=== PATIENT | male | born 1950 | race Caucasian/White ===

== ENCOUNTER → 2016-10-28 | Outpatient (CLI) | payer MEDICARE, SELFPAY ==
[~2016-10-28] MED LIST: CRESTOR40 MG PO
== END ==
LOC: HEART 5 07:51
DX: I25.119 Atherosclerotic heart disease of native coronary artery with unspecified angina pectoris (principal); I51.7 Cardiomegaly; I08.1 Rheumatic disorders of both mitral and tricuspid valves; I34.0 Nonrheumatic mitral (valve) insufficiency
CPT/HCPCS: 78452; 93306; A9502; J2785

== ENCOUNTER → 2020-08-08 | Outpatient (CLI) | payer MEDICARE, SELFPAY ==
[~2020-08-08] MED LIST changes: +ACTOS45 MG PO; +ASPIRIN EC81 MG PO; +EFFIENT10 MG PO; +HYDROCODON-ACE1 EAC4 PO; +HYDROCODONE-AC1 EACH PO; +IBUPROFEN OTC PO; +LEVOFLOXACIN500 MG PO; +LORATADINE10 MG PO; +METFORMIN HCL500 MG PO; +NITROGLYCERIN0.4 MG SL; +RANOLAZINE ER1000 MG PO
== END ==
LOC: HEART 5 07:53
DX: I20.9 Angina pectoris, unspecified (principal); R94.39 Abnormal result of other cardiovascular function study
CPT/HCPCS: 36415; 71046; 78452; 80048; 85025; A9502; J2785; U0003

== ENCOUNTER 2020-08-10 07:10 | Outpatient (CLI) | payer MEDICARE, SELFPAY ==
[~2020-08-10] VITALS: Ht 180.3 cm; Wt 108.9 kg
[~2020-08-10 07:10] MED LIST changes: -ACTOS45 MG PO; -HYDROCODON-ACE1 EAC4 PO; -HYDROCODONE-AC1 EACH PO; -LEVOFLOXACIN500 MG PO
[2020-08-10] MEDS ORDERED: ACTOS45 MG PO (08:49)
[2020-08-10] MEDS ORDERED: LEVOFLOXACIN500 MG PO (11:29)
[2020-08-10] MEDS ORDERED: HYDROCODON-ACE1 EAC4 PO (11:29)
[2020-08-11] MEDS ORDERED: LEVOFLOXACIN500 MG PO (09:19)
[2020-08-11] MEDS ORDERED: HYDROCODONE-AC1 EACH PO (09:22)
== END 2020-08-11 10:11 | disposition home or self-care (01) ==
LOC: CATH 07:10 → PROG CARE 11:54 → CATH 08-11 10:11
DX: Z45.010 Encounter for checking and testing of cardiac pacemaker pulse generator [battery] (principal); I25.119 Atherosclerotic heart disease of native coronary artery with unspecified angina pectoris; Z98.61 Coronary angioplasty status; I49.5 Sick sinus syndrome; I10 Essential (primary) hypertension; K21.9 Gastro-esophageal reflux disease without esophagitis; E11.9 Type 2 diabetes mellitus without complications; E78.5 Hyperlipidemia, unspecified; Z79.82 Long term (current) use of aspirin; Z79.899 Other long term (current) drug therapy; Z95.1 Presence of aortocoronary bypass graft; Z82.49 Family history of ischemic heart disease and other diseases of the circulatory system; Z20.822 Contact with and (suspected) exposure to COVID-19
CPT/HCPCS: 33213; 71045; 82962; 87635; 93005; 99152; 99153; C1785; C1898; J1644; J2250; J2270; J3010; J3370; J7040; J7050; J7070

== ENCOUNTER → 2020-09-12 | Outpatient (CLI) | payer MEDICARE, OTHER ==
[~2020-09-12] MED LIST changes: +ACTOS45 MG PO; +HYDROCODON-ACE1 EAC4 PO; +HYDROCODONE-AC1 EACH PO; +LEVOFLOXACIN500 MG PO
[2020-09-12 12:52] LABS: HEMOGLOBIN 14.1 gm/dl (14.0-17.5); RED BLOOD COUNT 4.49 M/UL (4.20-5.50); WHITE BLOOD COUNT 4.8 K/UL (4.5-11.0)
[2020-09-12 13:02] LABS: BUN/CREATININE RATIO 7 (0-10)
== END ==
LOC: LAB 11:59
PROVIDERS: Internal Medicine Cardiovascular Disease
DX: R94.39 Abnormal result of other cardiovascular function study (principal); I20.9 Angina pectoris, unspecified; I10 Essential (primary) hypertension; Z13.9 Encounter for screening, unspecified; Z20.822 Contact with and (suspected) exposure to COVID-19
CPT/HCPCS: 36415; 80048; 85025; U0003

== ENCOUNTER 2020-09-14 08:11 | Outpatient (CLI) | payer MEDICARE, OTHER ==
[~2020-09-14] VITALS: Ht 177.8 cm; Wt 110.2 kg
[2020-09-15 03:11] LABS: HEMOGLOBIN 13.3 gm/dl (14.0-17.5); RED BLOOD COUNT 4.23 M/UL (4.20-5.50); WHITE BLOOD COUNT 6.7 K/UL (4.5-11.0)
[2020-09-15 03:31] LABS: BUN/CREATININE RATIO 11 (0-10)
== END 2020-09-15 15:32 | disposition home or self-care (01) ==
LOC: CATH 08:11 → PROG CARE 13:32 → CATH 09-15 15:32
PROVIDERS: Internal Medicine Interventional Cardiology
DX: I25.118 Atherosclerotic heart disease of native coronary artery with other forms of angina pectoris (principal); I25.728 Atherosclerosis of autologous artery coronary artery bypass graft(s) with other forms of angina pectoris; E78.5 Hyperlipidemia, unspecified; I25.2 Old myocardial infarction; E11.9 Type 2 diabetes mellitus without complications; I10 Essential (primary) hypertension; I49.5 Sick sinus syndrome; Z79.82 Long term (current) use of aspirin; Z95.5 Presence of coronary angioplasty implant and graft; Z79.899 Other long term (current) drug therapy; Z79.84 Long term (current) use of oral hypoglycemic drugs; Z82.49 Family history of ischemic heart disease and other diseases of the circulatory system
CPT/HCPCS: 36415; 80048; 82962; 85027; 85347; 92920; 93005; 99152; 99153; C1725; C1760; C1769; C1887; C1894; J1170; J1644; J2250; J3010; J7030; Q9967

== ENCOUNTER → 2020-12-05 | Outpatient (CLI) | payer MEDICARE, OTHER | LOC: HEART 5 11-30 09:00 | DX: I20.9 Angina pectoris, unspecified (principal); R06.02 Shortness of breath; I08.3 Combined rheumatic disorders of mitral, aortic and tricuspid valves; Z95.0 Presence of cardiac pacemaker | CPT/HCPCS: 93306 ==

== ENCOUNTER 2021-01-17 22:47 | Emergency (ER) | payer MEDICARE, SELFPAY ==
[2021-01-18 01:44] LABS: HEMOGLOBIN 14.8 gm/dl (14.0-17.5); RED BLOOD COUNT 4.57 M/UL (4.20-5.50); WHITE BLOOD COUNT 6.6 K/UL (4.5-11.0)
[2021-01-18 01:50] LABS: BUN/CREATININE RATIO 9 (0-10)
== END 2021-01-18 05:50 | disposition home or self-care (01) ==
LOC: ER1 22:47
PROVIDERS: Family Medicine
DX: R07.9 Chest pain, unspecified (principal); I25.10 Atherosclerotic heart disease of native coronary artery without angina pectoris; E11.9 Type 2 diabetes mellitus without complications; Z79.82 Long term (current) use of aspirin
CPT/HCPCS: 71045; 80053; 82550; 82553; 83874; 84484; 85025; 93005; 99285